=== PATIENT | male | born 1930 | race Caucasian/White ===

== ENCOUNTER 2018-03-03 17:18 | Inpatient (IN) | payer MEDICARE, BC ==
[~2018-03-03 17:18] MED LIST: Heparin 1,000 UNITS/ML VIAL ONE
[2018-03-03] MEDS: Sodium Chloride 0.9% 1,000 ML IV SCH (18:29)
[2018-03-03] MEDS ORDERED: Vancomycin HCl 1.5 GM in Sodium Chloride 0.9% 250 ML 300 ML IVPB SCH (18:30)
[2018-03-03 18:41] VITALS: BMI 25.7
[2018-03-03 18:43] LABS: INR-International Normal Ratio 1.9; PTT 44.4 SEC (22.9-36.1); Prothrombin Time 21.6 SEC (12.0-14.7)
[2018-03-03 18:49] LABS: Anion Gap 14 mmol/L (10-20); BUN (Urea Nitrogen) 20 mg/dL (8.4-25.7); Calc. Creatinine Clearance 77 mL/min (70-130); Carbon Dioxide 26 mmol/L (23-31); Chloride 100 mmol/L (98-107); Estimated GFR-MDRD 80; Glucose 113 mg/dL (83-110); Potassium 4.1 mmol/L (3.5-5.1); Sodium 136 mmol/L (136-145)
[2018-03-03 19:02] LABS: Anisocytosis SLIGHT = 6-15 cells (100X) (0-5/hpf); Band 7 % (5-11); Hemoglobin 11.4 g/dL (14.0-18.0); Lymphocytes 1 % (21-51); MDiff Complete? YES; Mean Corpuscular HGB CONC 32.7 g/dL (32.0-36.0); Mean Corpuscular Hemoglobin 29.6 pg (27.0-31.0); Mean Corpuscular Volume 90.5 fL (78.0-98.0); Mean Platelet Volume 6.8 fL (7.4-10.4); Monocytes 6 % (0-10); Neutrophil 86 % (42-75); PLT Morphology Comment Appears Adequate; Platelet Count 354 thou/uL (130-400); RBC Distribution Width 17.1 % (11.5-14.5); Red Blood Cell (RBC) Count 3.84 mill/uL (4.70-6.10); White Blood Cell (WBC) Count 13.1 thou/uL (4.8-10.8)
[2018-03-03 19:33] LABS: BF Color Yellow; Body Fluid Source SYNOVIAL FLUID; Clarity Cloudy/Turbid (Clear); RBC Count-Automated 216000 /cumm; Tube # EDTA; WBC Background Count 0.01; WBC/NonHematic-Auto 123000 /cumm
[2018-03-03 19:43] LABS: Bilirubin Negative (Negative); Blood, Urine Negative (Negative); Clarity CLEAR (Clear); Glucose, Urine (Dipstick) Negative (Negative); Leukocyte Trace (Negative); Nitrite Negative (Negative); Protein, Urine (Dipstick) Trace mg/dL (Neg-Trace); Specific Gravity, Urine 1.019 (1.002-1.036); pH, Urine 5.5 (5.0-9.0)
[2018-03-03 19:45] LABS: Bacteria/HPF None Seen HPF (None Seen); Hyaline Casts/LPF 0-3 HYALINE CAST LPF (0-3 Hyaline); Pathc Cast-AUWi Flag 0.58 (0-2.49); Squamous Epithelial None Seen HPF (0-3); WBC/HPF 0-3 HPF (0-3)
--- NOTE | 2018-03-03 19:50 | RAD ---
CHEST TWO VIEWS: 03/03/18 HISTORY: Preop. FINDINGS: Cardiac silhouette and pulmonary vasculature are unremarkable. Mediastinum is midline with aortic evans cification. Lungs are hyperinflated with flattening of each hemidiaphragm. No lobar consolidation, pn eumothorax or pleural fluid. 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 Ossification of the anterior longitudinal ligament of the thoracic spine is consistent with diffuse idiopathic skeletal hyperostosis. IMPRESSION: Atherosclerosis. COPD. Chronic right rotator cuff tear. POS: [facility]
[2018-03-03 19:59] LABS: BF Segmented Neutrophils 91 %; Lymphocytes 9 %
[2018-03-03] MEDS: Docusate Calcium (SURFAK) 240 MG CAP PO SCH (20:26)
[2018-03-03] MEDS: HYDROcodone/Acetaminophen 10/325 mg Tablet PO PRN (20:26)
[2018-03-03] MEDS: cefTRIAXone\\ROCEPHIN 2 GM in Sodium Chloride 0.9% 100 ML IVPB SCH (21:09)
[2018-03-04] MEDS: Fish Oil 1,000 MG CAP PO SCH ×2 (08:41→20:10)
[2018-03-04] MEDS: Docusate Calcium (SURFAK) 240 MG CAP PO SCH ×2 (08:41→20:10)
[2018-03-04] MEDS: Ascorbic Acid 500 mg Chewable Tablet PO SCH ×2 (08:42→20:07)
[2018-03-04] MEDS ORDERED: Tamsulosin HCl 0.4 MG CAP PO SCH (09:00)
[2018-03-04] MEDS ORDERED: Amlodipine 10 MG TAB PO SCH (09:00)
[2018-03-04] MEDS ORDERED: Colchicine 0.6 MG TAB PO SCH (09:00)
[2018-03-04] MEDS: HYDROcodone/Acetaminophen 10/325 mg Tablet PO PRN ×2 (11:26→20:08)
[2018-03-04] MEDS: Sodium Chloride 0.9% 1,000 ML IV SCH ×2 (15:22→17:10)
--- NOTE | 2018-03-04 15:23 | PDOC.PN ---
- Subjective Encounter Start Date: 03/04/18 Encounter Start Time: 15:21 Subjective: IM team consulted for medical management -: pt reports that he fell & has worse Knee pain in R knee - Objective MAR Reviewed: Yes Vital Signs & Weight: Vital Signs (12 hours) Temp Pulse Resp BP BP Pulse Ox 03/04/18 13:05 98.3 F 70 16 102/60 98 03/04/18 08:42 98.6 F 84 18 98 03/04/18 08:41 84 123/71 03/04/18 07:10 98.6 F 84 16 123/71 98 03/04/18 04:05 97.9 F 96 16 118/67 96 Weight Weight 200 lb I&O: 03/03/18 03/04/18 03/05/18 06:59 06:59 06:59 Intake Total 1040 Output Total 500 Balance 540 Result Diagrams: 03/03/18 18:17 03/03/18 18:17 Additional Labs: Laboratory Tests 03/04/18 07:32 C-Reactive Protein 24.63 H Phys Exam - Physical Examination Constitutional: NAD HEENT: PERRLA, moist MMs, sclera anicteric, oral pharynx no lesions Neck: no nodes, no JVD, supple, full ROM Respiratory: no wheezing, no rales, no rhonchi, clear to auscultation bilateral Cardiovascular: RRR, no significant murmur, no rub Gastrointestinal: soft, non-tender, no distention, positive bowel sounds Musculoskeletal: no edema, pulses present R knee sweling Neurological: non-focal, normal sensation, moves all 4 limbs Psychiatric: normal affect, A&O x 3 Skin: no rash Dx/Plan (1) Knee pain Code(s): M25.569 - PAIN IN UNSPECIFIED KNEE Status: Acute Qualifiers: Laterality: right Comment: Suspecting septic arthritis (2) A-fib Code(s): I48.91 - UNSPECIFIED ATRIAL FIBRILLATION Status: Chronic Qualifiers: Atrial fibrillation type: paroxysmal Qualified Code(s): I48.0 - Paroxysmal atrial fibrillation (3) HTN (hypertension) Code(s): I10 - ESSENTIAL (PRIMARY) HYPERTENSION Status: Chronic (4) Gout Code(s): M10.9 - GOUT, UNSPECIFIED Status: Chronic - Plan continue antibiotics, DVT proph w/SCDs Abx per ID. on Vanco and rocephin.Synovial fluid Cx sent.follow -: BP meds resterted -: hold eliquis for Sx tomorrow.restart as soon as possible -: add PRN meds. -: Im team will follow. Cont NS. am labs * . Review of Systems - Review of Systems Constitutional: negative: fever, chills, sweats, weakness, malaise, other ENT: negative: Ear Pain, Ear Discharge, Nose Pain, Nose Discharge, Nose Congestion, Mouth Pain, Mouth Swelling, Throat Pain, Throat Swelling, Other Respiratory: negative: Cough, Dry, Shortness of Breath, Hemoptysis, SOB with Excertion, Pleuritic Pain, Sputum, Wheezing Cardiovascular: negative: chest pain, palpitations, orthopnea, paroxysmal nocturnal dyspnea, edema, light headedness, other Gastrointestinal: negative: Nausea, Vomiting, Abdominal Pain, Diarrhea, Constipation, Melena, Hematochezia, Other Genitourinary: negative: Dysuria, Frequency, Incontinence, Hematuria, Retention , Other Musculoskeletal: Other (Knee pain). negative: Neck Pain, Shoulder Pain, Arm Pain, Back Pain, Hand Pain, Leg Pain, Foot Pain Skin: negative: Rash, Lesions, Jeremi, Bruising, Other Neurological: negative: Weakness, Numbness, Incoordination, Change in Speech, Confusion, Seizures, Other - Medications/Allergies Allergies/Adverse Reactions: Allergies Allergy/AdvReac Type Severity Reaction Status Date / Time No Known Allergies Allergy Verified 03/03/18 21:16 Medications: Current Medications Hydrocodone Bitart/Acetaminophen (Rossiter 10/325) 1 tab PO Q6H PRN PRN Reason: Mild-Moderate Pain (1-5) Last Admin: 03/03/18 20:26 Dose: 1 tab Hydrocodone Bitart/Acetaminophen (Rossiter 10/325) 2 tab PO Q6H PRN PRN Reason: Moderate to Severe Pain (6-10) Last Admin: 03/04/18 11:26 Dose: 2 tab Allopurinol (Zyloprim) 300 mg PO HS [facility] Amlodipine Besylate (Norvasc) 10 mg PO DAILY [facility] Ascorbic Acid (Vitamin C) 1,000 mg PO BID [facility] Last Admin: 03/04/18 08:42 Dose: 1,000 mg Atorvastatin Calcium (Lipitor) 40 mg PO HS [facility] Colchicine (Colcrys) 0.6 mg PO DAILY [facility] Docusate Calcium (Surfak) 240 mg PO BID [facility] Last Admin: 03/04/18 08:41 Dose: 240 mg Enalapril Maleate (Vasotec) 20 mg PO HS [facility] Fish Oil (Fish Oil) 1,000 mg PO BID [facility] Last Admin: 03/04/18 08:41 Dose: 1,000 mg Sodium Chloride (Normal Saline 0.9%) 1,000 mls @ 50 mls/hr IV .Q20H [facility] Last Admin: 03/03/18 18:29 Dose: 1,000 mls Ceftriaxone Sodium 2 gm/ (Sodium Chloride) 100 mls @ 200 mls/hr IVPB Q24HR@ 2000 [facility] Last Admin: 03/03/18 21:09 Dose: 100 mls Pantoprazole Sodium (Protonix) 40 mg PO DAILY [facility] Sodium Chloride (Flush - Normal Saline) 10 ml IVF Q12HR [facility] Sodium Chloride (Flush - Normal Saline) 10 ml IVF PRN PRN PRN Reason: Saline Flush Tamsulosin HCl (Flomax) 0.4 mg PO DAILY [facility]
[2018-03-04] MEDS ORDERED: Diabetic Tussin 200 MG/10 ML UDCUP PO PRN (15:42)
[2018-03-04] MEDS ORDERED: hydrALAZINE 20 MG/ML VIAL SLOW IVP PRN (15:42)
[2018-03-04] MEDS ORDERED: Benzonatate 100 MG CAP PO PRN (15:42)
[2018-03-04] MEDS ORDERED: Ondansetron HCl/PF 4 MG/2 ML Vial IVP PRN (15:42)
[2018-03-04] MEDS ORDERED: Acetaminophen 325 MG TAB PO PRN (15:42)
[2018-03-04] MEDS ORDERED: Bisacodyl 5 MG TAB PO PRN (15:42)
[2018-03-04] MEDS ORDERED: Nitroglycerin 0.4 MG TAB (25 Tab Bottle) SL PRN (15:42)
[2018-03-04] MEDS ORDERED: Mag-Al 1200 mg/1200 mg/30 ML UDCUP PO PRN (15:42)
[2018-03-04] MEDS ORDERED: Senokot 8.6 MG TAB PO PRN (15:42)
[2018-03-04] MEDS ORDERED: Loratadine 10 MG TAB PO PRN (15:42)
[2018-03-04] MEDS ORDERED: cloNIDine 0.1 MG TAB PO PRN (15:42)
[2018-03-04] MEDS ORDERED: Calcium Carbonate 500 MG ChewTAB PO PRN (15:42)
[2018-03-04] MEDS: Vancomycin HCl 1.25 GM in Sodium Chloride 0.9% 250 ML 250 ML IVPB SCH (18:36)
[2018-03-04] MEDS: Atorvastatin Calcium 40 MG TAB PO SCH (20:10)
[2018-03-04] MEDS: Allopurinol 300 MG TAB PO SCH (20:10)
[2018-03-04] MEDS: cefTRIAXone\\ROCEPHIN 2 GM in Sodium Chloride 0.9% 100 ML IVPB SCH (20:10)
[2018-03-04] MEDS ORDERED: Atorvastatin Calcium 40 MG TAB PO SCH (21:00)
[2018-03-04] MEDS ORDERED: Vancomycin HCl 1 GM in Sodium Chloride 0.9% 250 ML 250 ML IVPB SCH (21:00)
[2018-03-04] MEDS ORDERED: Non-Formulary Item 1 EACH (Omega-3s/Dha/Epa/Fish Oil [Omega-3 Fish Oil 1,200 Mg Sfgl] 1 E PO SCH (21:00)
[2018-03-04] MEDS ORDERED: Non-Formulary Item 1 EACH (Enalapril Maleate [Enalapril Maleate] 20 MG) PO SCH (21:00)
[2018-03-04] MEDS ORDERED: Allopurinol 300 MG TAB PO SCH (21:00)
--- NOTE | 2018-03-04 23:49 | CON ---
DATE OF CONSULTATION: 03/04/2018 REASON FOR CONSULTATION: Right total knee replacement infection. HISTORY OF PRESENT ILLNESS: An 87-year-old who has a history of chronic atrial fibrillation, hypertension as well as gout, and previous right knee replacement many years ago by Dr. Chavez. Reportedly, more than 20 years ago, he developed progressive pain in the area and Dr. Chavez did arthrocentesis. This yielded seropurulent fluid with gram positive cocci in clusters. Full identification and susceptibilities are pending. The patient is going to have removal of the implant tomorrow and we will have a spacer, probably functional spacer temporarily placed. He right now denies any headaches, visual symptoms, sore throat, odynophagia, excisional dyspnea or chest pain, no back pain, no abdominal pain or diarrhea. He is voiding in the urinal. His neuro status is stable. PAST MEDICAL HISTORY: Includes hypertension, gout, atrial fibrillation. MEDICATIONS: Allopurinol, hydrocodone, Norvasc, ascorbic acid, colchicine, enalapril, ceftriaxone, tamsulosin and currently in addition, he is on tramadol. ALLERGIES: None. SOCIAL HISTORY: Never a smoker. FAMILY HISTORY: Noncontributory. PHYSICAL EXAMINATION: VITAL SIGNS: Temperature max 98.6, BP 95/56, pulse 72, respirations 20, O2 sat 98%. SKIN: Shows the right knee with no evidence of erythema or drainage. Peripheral IV access. Does not have a Flores catheter. HEENT: Noncontributory. NECK: Supple. LUNGS: With symmetric clear breath sounds. HEART: S1, S2, irregular rate without murmurs. ABDOMEN: Soft, not distended. GENITOURINARY: No genital abnormalities. EXTREMITIES: Right knee is somewhat swollen compared with the left side, some limitation range of motion. Pulses 1+ in dorsalis pedis. NEUROLOGIC: Plantar responses are flexure. Cognitive function appears to be intact. LABORATORY DATA: White cell count 13.1, hemoglobin 11.4, platelets 354,000 with 86% neutrophils. INR 1.9. Chemistry with a creatinine 0.9. Synovial fluid with predominance of mature neutrophils. Urinalysis with 0-3 wbc's. The culture aspirate with gram positive cocci in clusters. IMAGING: Chest x-ray, atherosclerosis and COPD. ASSESSMENT: Prior total knee replacement with now apparent infection, probably either coagulase-negative Staphylococcus or Staphylococcus aureus including the possibility of methicillin-resistant staphylococcus aureus. The patient will have the implant removed tomorrow and then after that a spacer will be placed. The decision to revise or keep the spacer which is likely to be one of those functional spacers for a long period of time. We will wait for the final identification and susceptibility profile to determine the long-term antimicrobial therapy. We will add vancomycin. Wait for cultures and then PICC line placement. Treat for a long time about 42 days. After that transition to oral antimicrobials, duration to be determined by the subsequent course of management, specifically if there is a revision surgery or not. There is not, then would continue it indefinitely with suppressive therapy. MTDD
[2018-03-05 05:40] LABS: #Basophils 0.1 thou/uL (0.0-0.2); #Eosinphils 0.2 thou/uL (0.0-0.7); #Lymphocytes 1.5 thou/uL (1.20-3.40); #Monocytes 1.1 thou/uL (0.11-0.59); #Neutrophils 6.4 thou/uL (1.40-6.50); %Basophils 0.6 % (0.0-1.0); %Eosinophils 1.8 % (0.0-10.0); %Lymphocytes 16.5 % (21.0-51.0); %Monocytes 12.1 % (0.0-10.0); %Neutrophils 68.9 % (42.0-75.0); Hemoglobin 9.4 g/dL (14.0-18.0); Mean Corpuscular HGB CONC 32.2 g/dL (32.0-36.0); Mean Corpuscular Hemoglobin 29.5 pg (27.0-31.0); Mean Corpuscular Volume 91.5 fL (78.0-98.0); Mean Platelet Volume 7.5 fL (7.4-10.4); Platelet Count 302 thou/uL (130-400); RBC Distribution Width 17.1 % (11.5-14.5); White Blood Cell (WBC) Count 9.3 thou/uL (4.8-10.8)
[2018-03-05 05:43] LABS: Anion Gap 9 mmol/L (10-20); BUN (Urea Nitrogen) 19 mg/dL (8.4-25.7); Calc. Creatinine Clearance 87 mL/min (70-130); Calcium 8.3 mg/dL (7.8-10.44); Carbon Dioxide 25 mmol/L (23-31); Chloride 103 mmol/L (98-107); Estimated GFR-MDRD Greater than 90; Glucose 96 mg/dL (83-110); Potassium 3.7 mmol/L (3.5-5.1); Sodium 133 mmol/L (136-145)
[2018-03-05] MEDS: Vancomycin HCl 1.25 GM in Sodium Chloride 0.9% 250 ML 250 ML IVPB SCH ×2 (05:58→17:40)
[2018-03-05] MEDS ORDERED: Fentanyl 100 MCG/2 ML VIAL ONE ×3 (07:28→10:43)
[2018-03-05] MEDS ORDERED: Ropivacaine 0.2% HCl/PF 20 ML ONE (07:28)
[2018-03-05] MEDS ORDERED: Midazolam HCl 2 mg/2 ml Vial ONE (07:28)
[2018-03-05] MEDS ORDERED: Tobramycin Sulfate 1.2 GM VIAL ONE (07:57)
[2018-03-05] MEDS ORDERED: Bupivacaine HCl 0.5%/Epinephrine 1:200,000/PF 30 ml Vial ONE ×2 (07:57→10:59)
[2018-03-05] MEDS: Amlodipine 10 MG TAB PO SCH (08:26)
[2018-03-05] MEDS: Docusate Calcium (SURFAK) 240 MG CAP PO SCH ×2 (08:27→20:34)
[2018-03-05] MEDS: Colchicine 0.6 MG TAB PO SCH (08:27)
[2018-03-05] MEDS: Fish Oil 1,000 MG CAP PO SCH ×2 (08:27→20:34)
[2018-03-05] MEDS: Ascorbic Acid 500 mg Chewable Tablet PO SCH ×2 (08:27→20:34)
[2018-03-05] MEDS: Tamsulosin HCl 0.4 MG CAP PO SCH (08:27)
[2018-03-05] MEDS ORDERED: Non-Formulary Item 1 EACH (Omeprazole [Omeprazole] 20 MG) PO SCH (09:00)
[2018-03-05] MEDS ORDERED: COLCHICINE 0.6 MG PO SCH (09:00)
[2018-03-05] MEDS ORDERED: Ondansetron HCl/PF 4 MG/2 ML Vial IVP PRN (10:26)
[2018-03-05] MEDS ORDERED: Promethazine HCl 25 MG/ML VIAL SLOW IVP PRN (10:26)
[2018-03-05] MEDS ORDERED: Promethazine HCl 25 MG/ML VIAL IM PRN (10:26)
--- NOTE | 2018-03-05 11:05 | OP ---
DATE OF PROCEDURE: 03/05/2018 PREOPERATIVE DIAGNOSIS: Infected total knee. POSTOPERATIVE DIAGNOSIS: Infected total knee. PROCEDURE: Revision of right knee for infection. SURGEON: Sandip Chavez M.D. CREDIT UNDERWRITER: Howie Hooper PA-C. BLOOD LOSS: Minimal. TOURNIQUET TIME: 63. SPECIMEN: None. DRAINS: None. COMPLICATIONS: None. DESCRIPTION OF PROCEDURE: The patient was taken to operating room where general anesthesia was induc ed. Right leg was prepped and draped in the usual sterile fashion. He was already on Rocephin and v ancomycin. The old incision was opened. I created flaps. I performed medial parapatellar arthrotom y. I performed a complete synovectomy and then removed implants with some difficulty and great care to preserve bone stock. Pulsatile lavage irrigation was performed. I recut the tibia and trial 16 a ll poly tibia with pretty good stability and full extension. I removed the patella and irrigat ed this as well. I created tobramycin and vancomycin treated cement. This was mixed and I had cemen alia the implants with somewhat sloppy technique to make them easier to remove enough cement and then about 10 degrees of flexion. Extraneous cement was removed. Pulsatile lavage irrigation was perform ed again. A total of about 8 liters of irrigation was used. Remnants include #2 Vicryl and #2 Quill , subcu closed with 0 Quill, skin was closed with 2-0 Prolene. Sterile dressings applied. The patie nt placed in knee immobilizer.
[2018-03-05] MEDS ORDERED: Ondansetron HCl/PF 4 MG/2 ML Vial ONE (11:30)
[2018-03-05] MEDS ORDERED: Lidocaine 1% PF 5 ML VIAL ONE (11:30)
[2018-03-05] MEDS ORDERED: PHENYLEPHRINE-NS 100 MCG/ML 10 ML SYRINGE ONE (11:30)
[2018-03-05] MEDS ORDERED: PROPOFOL 200 MG/20 ML VIAL ONE (11:30)
--- NOTE | 2018-03-05 12:18 | EKG ---
Test Reason : PREOP Blood Pressure : / mmHG Vent. Rate : 083 BPM Atrial Rate : 098 BPM P-R Int : 000 ms QRS Dur : 084 ms QT Int : 340 ms P-R-T Axes : 000 081 033 degrees QTc Int : 399 ms Atrial fibrillation RSR' or QR pattern in V1 suggests right ventricular conduction delay Abnormal ECG Confirmed by KIRAN ZUNIGA ([id number]) on 03/05/2018 12:18:30 PM Referred By: CHIRAG Confirmed By:KIRAN ZUNIGA
[2018-03-05] MEDS: HYDROcodone/Acetaminophen 10/325 mg Tablet PO PRN ×2 (13:37→19:30)
--- NOTE | 2018-03-05 14:26 | PRG ---
DATE OF SERVICE: 03/05/2018 SUBJECTIVE: Mr. Lozano is still having pain in the right knee area, did not have a PICC line placed yet. No respiratory symptoms, no abdominal pain. Voiding in the urinal. OBJECTIVE: VITAL SIGNS: T-max 98.2, blood pressure 136/81, pulse 90, respirations 18. GENERAL: Appears in no distress. LUNGS: Clear. CARDIOVASCULAR: S1 and S2, regular rate. ABDOMEN: Soft. LABORATORY DATA: White cell count down to 9.3, hemoglobin 9.4, platelets 302. Creatinine 0.8. Micr obiology with alpha-hemolytic streptococcus. The operative note was reviewed. The old incision was opened. Arthrotomy completed. Synovectomy completed. Implants removed. Patellar removed and irrig ated. Cement impregnated with antimicrobials was placed and new spacers with implants cemented. ASSESSMENT AND DISCUSSION: Total knee replacement many years ago, now with alpha-hemolytic strep inf ection. Continue Rocephin until final culture results are available, then discharge planning on IV R ocephin for 6 weeks and then transition to oral Keflex for indefinite suppression. I would treat for 3 months with 500 three times a day and then after that twice daily Keflex suppressive therapy. Fol low up C-reactive protein. The patient may be eligible for a revision if the current implant/spacer is not associated with adequate functional capacity.
--- NOTE | 2018-03-05 15:55 | PDOC.PN ---
- Subjective Encounter Start Date: 03/05/18 Encounter Start Time: 15:53 Subjective: s/p Knee Sx for Septic arthritis w placement of cement w ABx -: denies any pain/fever/chills/SOB -: care discussed w family at bedside - Objective MAR Reviewed: Yes Vital Signs & Weight: Vital Signs (12 hours) Temp Pulse Resp BP Pulse Ox 03/05/18 11:30 97.4 F L 90 18 136/81 95 03/05/18 08:26 79 03/05/18 04:11 97.5 F L 79 18 110/62 96 Weight Weight 200 lb I&O: 03/04/18 03/05/18 03/06/18 06:59 06:59 06:59 Intake Total 1040 Output Total 500 Balance 540 Result Diagrams: 03/05/18 04:02 03/05/18 04:02 Additional Labs: Microbiology 03/03/18 18:00 Knee aspirate - Right Bacterial Culture - Preliminary Alpha-Hemolytic Streptococcus 03/03/18 18:00 Knee aspirate - Right Bacterial Culture - Preliminary Phys Exam - Physical Examination Constitutional: NAD HEENT: PERRLA, moist MMs, sclera anicteric, oral pharynx no lesions Neck: no nodes, no JVD, supple, full ROM Respiratory: no wheezing, no rales, no rhonchi, clear to auscultation bilateral Cardiovascular: RRR, no significant murmur, no rub, gallop, irregular Gastrointestinal: soft, non-tender, no distention, positive bowel sounds Musculoskeletal: no edema, pulses present Neurological: non-focal, normal sensation, moves all 4 limbs Psychiatric: normal affect, A&O x 3 Skin: no rash Dx/Plan (1) Knee pain Code(s): M25.569 - PAIN IN UNSPECIFIED KNEE Status: Acute Qualifiers: Laterality: right Comment: Suspecting septic arthritis.s/p Sx w Removal of hardware 03/05/18 (2) A-fib Code(s): I48.91 - UNSPECIFIED ATRIAL FIBRILLATION Status: Chronic Qualifiers: Atrial fibrillation type: paroxysmal Qualified Code(s): I48.0 - Paroxysmal atrial fibrillation (3) HTN (hypertension) Code(s): I10 - ESSENTIAL (PRIMARY) HYPERTENSION Status: Chronic (4) Gout Code(s): M10.9 - GOUT, UNSPECIFIED Status: Chronic - Plan plan discussed w/ family, continue antibiotics, PT/OT, out of bed/ambulate, DVT proph w/SCDs Cont ABx. follow Cx. Streptococcus. -: pICC line placed for protracted course of IV ABx -: rehab next week. -: Check H/h in am. Home meds as below -: AC on hold. restart as soon as possible whe cleared by Ortho * . Review of Systems - Review of Systems Constitutional: negative: fever, chills, sweats, weakness, malaise, other Respiratory: negative: Cough, Dry, Shortness of Breath, Hemoptysis, SOB with Excertion, Pleuritic Pain, Sputum, Wheezing Cardiovascular: negative: chest pain, palpitations, orthopnea, paroxysmal nocturnal dyspnea, edema, light headedness, other Gastrointestinal: negative: Nausea, Vomiting, Abdominal Pain, Diarrhea, Constipation, Melena, Hematochezia, Other Genitourinary: negative: Dysuria, Frequency, Incontinence, Hematuria, Retention , Other Musculoskeletal: negative: Neck Pain, Shoulder Pain, Arm Pain, Back Pain, Hand Pain, Leg Pain, Foot Pain, Other Skin: negative: Rash, Lesions, Jeremi, Bruising, Other Neurological: negative: Weakness, Numbness, Incoordination, Change in Speech, Confusion, Seizures, Other - Medications/Allergies Allergies/Adverse Reactions: Allergies Allergy/AdvReac Type Severity Reaction Status Date / Time No Known Allergies Allergy Verified 03/03/18 21:16 Medications: Current Medications Acetaminophen (Tylenol) 650 mg PO Q4H PRN PRN Reason: Headache/Fever or Mild Pain Hydrocodone Bitart/Acetaminophen (Comfort 10/325) 1 tab PO Q6H PRN PRN Reason: Mild-Moderate Pain (1-5) Last Admin: 03/03/18 20:26 Dose: 1 tab Hydrocodone Bitart/Acetaminophen (Comfort 10/325) 2 tab PO Q6H PRN PRN Reason: Moderate to Severe Pain (6-10) Last Admin: 03/05/18 13:37 Dose: 2 tab Al Hydroxide/Mg Hydroxide (Maalox) 15 ml PO Q4H PRN PRN Reason: Heartburn or Indigestion Allopurinol (Zyloprim) 300 mg PO HS [facility] Last Admin: 03/04/18 20:10 Dose: 300 mg Amlodipine Besylate (Norvasc) 10 mg PO DAILY [facility] Last Admin: 03/05/18 08:26 Dose: Not Given Ascorbic Acid (Vitamin C) 1,000 mg PO BID [facility] Last Admin: 03/05/18 08:27 Dose: Not Given Atorvastatin Calcium (Lipitor) 40 mg PO [facility] Last Admin: 03/04/18 20:10 Dose: 40 mg Benzonatate (Tessalon) 100 mg PO Q4H PRN PRN Reason: Cough Bisacodyl (Dulcolax) 10 mg PO DAILYPRN PRN PRN Reason: Constipation Calcium Carbonate (Tums) 1,000 mg PO Q4H PRN PRN Reason: Heartburn or Indigestion Clonidine (Catapres) 0.1 mg PO Q4H PRN PRN Reason: Systolic BP > 160 Colchicine (Colcrys) 0.6 mg PO DAILY [facility] Last Admin: 03/05/18 08:27 Dose: Not Given Docusate Calcium (Surfak) 240 mg PO BID [facility] Last Admin: 03/05/18 08:27 Dose: Not Given Enalapril Maleate (Vasotec) 20 mg PO [facility] Last Admin: 03/04/18 20:09 Dose: 20 mg Fish Oil (Fish Oil) 1,000 mg PO BID [facility] Last Admin: 03/05/18 08:27 Dose: Not Given Guaifenesin (Robitussin Sf) 200 mg PO Q4H PRN PRN Reason: Cough Hydralazine HCl (Apresoline) 10 mg SLOW IVP Q4H PRN PRN Reason: Systolic BP > 170 Sodium Chloride (Normal Saline 0.9%) 1,000 mls @ 50 mls/hr IV .Q20H [facility] Last Admin: 03/04/18 17:10 Dose: 1,000 mls Ceftriaxone Sodium 2 gm/ (Sodium Chloride) 100 mls @ 200 mls/hr IVPB Q24HR@ 2000 [facility] Last Admin: 03/04/18 20:10 Dose: 100 mls Vancomycin HCl 1.25 gm/ Sodium (Chloride) 250 mls @ 166.667 mls/hr IVPB 0600, 1800 [facility] Last Admin: 03/05/18 05:58 Dose: 250 mls Lactulose (Lactulose) 10 gm PO DAILYPRN PRN PRN Reason: Constipation Loratadine (Claritin) 10 mg PO DAILYPRN PRN PRN Reason: Sinus Symptoms Miscellaneous Medication (Pharmacy To Dose) 1 each IVPB PRN PRN PRN Reason: Pharmacy to dose Nitroglycerin (Nitrostat) 0.4 mg SL Q5MIN PRN PRN Reason: Chest Pain Ondansetron HCl (Zofran) 4 mg IVP Q6H PRN PRN Reason: Nausea/Vomiting Pantoprazole Sodium (Protonix) 40 mg PO DAILY [facility] Last Admin: 03/05/18 08:27 Dose: Not Given Senna (Senokot) 2 tab PO HSPRN PRN PRN Reason: Constipation Sodium Chloride (Flush - Normal Saline) 10 ml IVF Q12HR [facility] Last Admin: 03/05/18 08:27 Dose: Not Given Sodium Chloride (Flush - Normal Saline) 10 ml IVF PRN PRN PRN Reason: Saline Flush Tamsulosin HCl (Flomax) 0.4 mg PO DAILY [facility] Last Admin: 03/05/18 08:27 Dose: Not Given Tramadol HCl (Ultram) 50 mg PO Q4H PRN PRN Reason: Moderate Pain (4-6)
--- NOTE | 2018-03-05 16:29 | SPC ---
ULTRASOUND GUIDED LEFT UPPER EXTREMITY PICC LINE PLACEMENT: Date: 03/05/18 HISTORY: Right knee infection. Patient needs long-term IV antibiotics. FLUOROSCOPY: Total fluoroscopy time was 0.1 minutes with total dose of 416 mGy*cm^2. TECHNIQUE: After informed consent was obtained, the patient was placed on the angiography table in the supine po sition. The left upper extremity was meticulously prepped and draped in the usual sterile fashion. An appropriate access site was determined with ultrasound guidance. The skin and subcutaneous tissues w ere infiltrated with buffered 1% lidocaine for local anesthesia. A small skin incision was made. A 5 [place] peel-away sheath was placed. The catheter was measured and cut to the appropriate length. The catheter was placed over the guidewi re with the tip positioned overlying the distal SVC. The guidewire and peel-away sheath were removed. The catheter was accessed and aspirated/flushed easily. The catheter was secured to the skin utilizi ng a StatLock device, and a dry, sterile dressing was placed. The patient tolerated the procedure well and without immediate complication. FINDINGS: Technically successful placement of a single lumen 5 [place] 47 cm PICC line via the left basilic vein . The tip of the catheter overlies the distal SVC. IMPRESSION: Technically successful left upper extremity PICC line placement. POS: [facility]
[2018-03-05] MEDS: cefTRIAXone\\ROCEPHIN 2 GM in Sodium Chloride 0.9% 100 ML IVPB SCH (19:30)
[2018-03-05] MEDS: Allopurinol 300 MG TAB PO SCH (20:34)
[2018-03-05] MEDS: Atorvastatin Calcium 40 MG TAB PO SCH (20:34)
[2018-03-05] MEDS: Heparin 5,000 UNITS/ML VIAL SC SCH (20:34)
[2018-03-06] MEDS: Sodium Chloride 0.9% 1,000 ML IV SCH ×2 (00:46→06:48)
[2018-03-06 05:51] LABS: #Eosinphils 0.1 thou/uL (0.0-0.7); #Monocytes 1.2 thou/uL (0.11-0.59); #Neutrophils 8.7 thou/uL (1.40-6.50); %Basophils 0.2 % (0.0-1.0); %Eosinophils 0.7 % (0.0-10.0); %Lymphocytes 9.1 % (21.0-51.0); %Monocytes 10.8 % (0.0-10.0); %Neutrophils 79.2 % (42.0-75.0); Hemoglobin 9.6 g/dL (14.0-18.0); Mean Corpuscular HGB CONC 32.7 g/dL (32.0-36.0); Mean Corpuscular Volume 91.8 fL (78.0-98.0); Mean Platelet Volume 6.8 fL (7.4-10.4); Platelet Count 319 thou/uL (130-400); RBC Distribution Width 17.1 % (11.5-14.5); Red Blood Cell (RBC) Count 3.18 mill/uL (4.70-6.10)
[2018-03-06 06:03] LABS: Vancomycin, Trough 20.5 ug/mL
[2018-03-06] MEDS: Vancomycin HCl 1.25 GM in Sodium Chloride 0.9% 250 ML 250 ML IVPB SCH (06:03)
[2018-03-06 06:06] LABS: Anion Gap 10 mmol/L (10-20); BUN (Urea Nitrogen) 16 mg/dL (8.4-25.7); Calc. Creatinine Clearance 91 mL/min (70-130); Carbon Dioxide 23 mmol/L (23-31); Chloride 104 mmol/L (98-107); Estimated GFR-MDRD Greater than 90; Glucose 128 mg/dL (83-110); Potassium 4.3 mmol/L (3.5-5.1); Sodium 133 mmol/L (136-145)
[2018-03-06] MEDS: Ascorbic Acid 500 mg Chewable Tablet PO SCH ×2 (07:48→20:41)
[2018-03-06] MEDS: Heparin 5,000 UNITS/ML VIAL SC SCH ×2 (07:48→20:43)
[2018-03-06] MEDS: Tamsulosin HCl 0.4 MG CAP PO SCH (07:49)
[2018-03-06] MEDS: Amlodipine 10 MG TAB PO SCH (07:49)
[2018-03-06] MEDS: Docusate Calcium (SURFAK) 240 MG CAP PO SCH ×2 (07:49→20:42)
[2018-03-06] MEDS: Colchicine 0.6 MG TAB PO SCH (07:50)
[2018-03-06] MEDS: Fish Oil 1,000 MG CAP PO SCH ×2 (07:50→20:43)
[2018-03-06] MEDS: HYDROcodone/Acetaminophen 10/325 mg Tablet PO PRN ×2 (08:43→16:04)
[2018-03-06] MEDS: traMADol HCl 50 MG TAB PO PRN (13:15)
--- NOTE | 2018-03-06 17:26 | PDOC.PN ---
- Subjective Encounter Start Date: 03/06/18 (f/u htn) Encounter Start Time: 17:23 Subjective: Pt denies any complaints or concerns. No BM in 3 days. Denies any -: problems with urination. - Objective Vital Signs & Weight: Vital Signs (12 hours) Temp Pulse Resp BP BP Pulse Ox 03/06/18 15:15 97.8 F 86 14 105/62 92 L 03/06/18 12:05 97.8 F 86 16 106/59 L 92 L 03/06/18 08:00 97.8 F 86 14 92 L 03/06/18 07:49 86 128/63 03/06/18 07:28 97.8 F 86 14 128/83 92 L Weight Weight 200 lb I&O: 03/05/18 03/06/18 03/07/18 06:59 06:59 06:59 Intake Total 780 Output Total 425 Balance 355 Result Diagrams: 03/06/18 05:28 03/06/18 05:28 Phys Exam - Physical Examination Constitutional: NAD Respiratory: no wheezing, no rales, no rhonchi Cardiovascular: RRR, no significant murmur Gastrointestinal: soft, non-tender, no distention, positive bowel sounds right leg in brace Neurological: non-focal Psychiatric: normal affect Skin: no rash Dx/Plan (1) Knee pain Code(s): M25.569 - PAIN IN UNSPECIFIED KNEE Status: Acute Qualifiers: Laterality: right Comment: Suspecting septic arthritis.s/p Sx w Removal of hardware 03/05/18 (2) A-fib Code(s): I48.91 - UNSPECIFIED ATRIAL FIBRILLATION Status: Chronic Qualifiers: Atrial fibrillation type: paroxysmal Qualified Code(s): I48.0 - Paroxysmal atrial fibrillation (3) Gout Code(s): M10.9 - GOUT, UNSPECIFIED Status: Chronic (4) HTN (hypertension) Code(s): I10 - ESSENTIAL (PRIMARY) HYPERTENSION Status: Chronic (5) Hyponatremia Code(s): E87.1 - HYPO-OSMOLALITY AND HYPONATREMIA Status: Acute - Plan * Right knee/leg per Ortho * * BP's on lower side especially for age - will reduce to half both the enalapril and amlodipine and place hold parameters if sbp less than 130. Im concerned this lower bp is going to cause poor energy or orthostatic sx. Return to home dosing as bp's rise * * Hyponatremia - mild, monitor * * Pt has docusate scheduled, add miralax. Has a few prn meds as well * * resume full anticoagulation for a fib when cleared by ortho * * dvt prophy - heparin * gi prophy - not indicated * code status full
[2018-03-06] MEDS: cefTRIAXone\\ROCEPHIN 2 GM in Sodium Chloride 0.9% 100 ML IVPB SCH (20:39)
[2018-03-06] MEDS: Allopurinol 300 MG TAB PO SCH (20:41)
[2018-03-06] MEDS: Atorvastatin Calcium 40 MG TAB PO SCH (20:42)
[2018-03-06] MEDS: Polyethylene Glycol 3350 17 GM Packet PO SCH (20:44)
--- NOTE | 2018-03-06 20:55 | PDOC.EVN ---
Event Note - Event Note Event Note: reviewing notes and VS and pt's systolic pressure in the 90's. Will start IVF to run overnight. Hold parameters placed earlier on anti-htn meds.
[2018-03-06] MEDS ORDERED: Sodium Chloride 0.9% 1,000 ML IV SCH (21:30)
[2018-03-07] MEDS: HYDROcodone/Acetaminophen 10/325 mg Tablet PO PRN ×3 (00:25→18:26)
[2018-03-07 06:20] LABS: Anion Gap 8 mmol/L (10-20); BUN (Urea Nitrogen) 23 mg/dL (8.4-25.7); Calc. Creatinine Clearance 54 mL/min (70-130); Carbon Dioxide 25 mmol/L (23-31); Chloride 104 mmol/L (98-107); Estimated GFR-MDRD 53; Glucose 121 mg/dL (83-110); Potassium 4.1 mmol/L (3.5-5.1); Sodium 133 mmol/L (136-145)
[2018-03-07] MEDS: Heparin 5,000 UNITS/ML VIAL SC SCH ×2 (08:42→20:07)
[2018-03-07] MEDS: Docusate Calcium (SURFAK) 240 MG CAP PO SCH ×2 (08:42→20:06)
[2018-03-07] MEDS: Ascorbic Acid 500 mg Chewable Tablet PO SCH ×2 (08:42→20:06)
[2018-03-07] MEDS: Fish Oil 1,000 MG CAP PO SCH ×2 (08:42→20:07)
[2018-03-07] MEDS: Tamsulosin HCl 0.4 MG CAP PO SCH (08:42)
[2018-03-07] MEDS: Colchicine 0.6 MG TAB PO SCH (08:42)
[2018-03-07] MEDS ORDERED: Amlodipine 5 MG TAB PO SCH (09:00)
--- NOTE | 2018-03-07 09:09 | PDOC.PN ---
- Subjective Encounter Start Date: 03/07/18 (f/u hypertension) Encounter Start Time: 09:07 Subjective: Pt denies any complaints this AM - denies cp/sob/n/v/diarrhea/skin rash -: Overnight bp's into the 90's systolic - IVF started - Objective Vital Signs & Weight: Vital Signs (12 hours) Temp Pulse Resp BP Pulse Ox 03/07/18 07:47 97.8 F 89 14 112/62 100 03/07/18 04:17 98.5 F 97 21 H 137/65 99 03/07/18 00:12 97.7 F 79 17 136/63 100 Weight Weight 200 lb I&O: 03/06/18 03/07/18 03/08/18 06:59 06:59 06:59 Intake Total 780 1335 Output Total 425 375 Balance 355 960 Result Diagrams: 03/06/18 05:28 03/07/18 05:15 Phys Exam - Physical Examination Constitutional: NAD Respiratory: no wheezing, no rales, no rhonchi, clear to auscultation bilateral Cardiovascular: RRR, no significant murmur Gastrointestinal: soft, non-tender, no distention, positive bowel sounds Psychiatric: normal affect Skin: no rash Dx/Plan (1) Knee pain Code(s): M25.569 - PAIN IN UNSPECIFIED KNEE Status: Acute Qualifiers: Laterality: right Comment: Suspecting septic arthritis.s/p Sx w Removal of hardware 03/05/18 (2) A-fib Code(s): I48.91 - UNSPECIFIED ATRIAL FIBRILLATION Status: Chronic Qualifiers: Atrial fibrillation type: paroxysmal Qualified Code(s): I48.0 - Paroxysmal atrial fibrillation (3) Gout Code(s): M10.9 - GOUT, UNSPECIFIED Status: Chronic (4) HTN (hypertension) Code(s): I10 - ESSENTIAL (PRIMARY) HYPERTENSION Status: Chronic (5) Hyponatremia Code(s): E87.1 - HYPO-OSMOLALITY AND HYPONATREMIA Status: Acute - Plan * * Right knee/leg per Ortho * * BP's low overnight and normal this AM - norvasc d/c. Will also d/c enalapril - add both back as bp's increase. * * Hyponatremia - mild, stable, will continue to monitor * * Pt has docusate scheduled and miralax scheduled and prn meds - no BM since admission * * resume full anticoagulation for a fib when cleared by ortho * * dvt prophy - heparin * gi prophy - not indicated * code status full .
[2018-03-07] MEDS: cefTRIAXone\\ROCEPHIN 2 GM in Sodium Chloride 0.9% 100 ML IVPB SCH (20:02)
[2018-03-07] MEDS: Polyethylene Glycol 3350 17 GM Packet PO SCH (20:04)
[2018-03-07] MEDS: Allopurinol 300 MG TAB PO SCH (20:06)
[2018-03-07] MEDS: Atorvastatin Calcium 40 MG TAB PO SCH (20:06)
[2018-03-07] MEDS: traMADol HCl 50 MG TAB PO PRN (22:19)
[2018-03-08 05:31] LABS: #Eosinphils 0.6 thou/uL (0.0-0.7); #Lymphocytes 1.3 thou/uL (1.20-3.40); #Monocytes 0.7 thou/uL (0.11-0.59); #Neutrophils 5.5 thou/uL (1.40-6.50); %Basophils 0.5 % (0.0-1.0); %Eosinophils 7.3 % (0.0-10.0); %Lymphocytes 15.6 % (21.0-51.0); %Monocytes 8.8 % (0.0-10.0); %Neutrophils 67.7 % (42.0-75.0); Hemoglobin 7.5 g/dL (14.0-18.0); Mean Corpuscular Hemoglobin 30.6 pg (27.0-31.0); Mean Corpuscular Volume 92.8 fL (78.0-98.0); Mean Platelet Volume 7.1 fL (7.4-10.4); Platelet Count 348 thou/uL (130-400); Red Blood Cell (RBC) Count 2.44 mill/uL (4.70-6.10); White Blood Cell (WBC) Count 8.2 thou/uL (4.8-10.8)
[2018-03-08 05:36] LABS: Anion Gap 9 mmol/L (10-20); BUN (Urea Nitrogen) 26 mg/dL (8.4-25.7); Calc. Creatinine Clearance 49 mL/min (70-130); Calcium 8.2 mg/dL (7.8-10.44); Carbon Dioxide 25 mmol/L (23-31); Chloride 105 mmol/L (98-107); Estimated GFR-MDRD 47; Glucose 92 mg/dL (83-110); Potassium 4.2 mmol/L (3.5-5.1); Sodium 135 mmol/L (136-145)
[2018-03-08] MEDS: Colchicine 0.6 MG TAB PO SCH (09:04)
[2018-03-08] MEDS: Fish Oil 1,000 MG CAP PO SCH ×2 (09:04→20:29)
[2018-03-08] MEDS: Docusate Calcium (SURFAK) 240 MG CAP PO SCH ×2 (09:05→20:32)
[2018-03-08] MEDS: Tamsulosin HCl 0.4 MG CAP PO SCH (09:05)
[2018-03-08] MEDS: Ascorbic Acid 500 mg Chewable Tablet PO SCH ×2 (09:06→20:30)
[2018-03-08] MEDS: Heparin 5,000 UNITS/ML VIAL SC SCH ×2 (09:08→20:39)
[2018-03-08] MEDS: HYDROcodone/Acetaminophen 10/325 mg Tablet PO PRN ×2 (09:14→23:23)
--- NOTE | 2018-03-08 13:41 | PDOC.PN ---
- Subjective Encounter Start Date: 03/08/18 Encounter Start Time: 13:39 Subjective: no fever, some pain in surgical site - Objective MAR Reviewed: Yes Vital Signs & Weight: Vital Signs (12 hours) Temp Pulse Resp BP Pulse Ox 03/08/18 11:42 98.2 F 99 20 131/71 97 03/08/18 08:08 98.0 F 100 16 129/75 98 03/08/18 08:00 98.0 F 100 16 03/08/18 04:18 98.1 F 86 17 126/70 97 Weight Weight 200 lb I&O: 03/07/18 03/08/18 03/09/18 06:59 06:59 06:59 Intake Total 1335 680 Output Total 375 350 Balance 960 330 Result Diagrams: 03/08/18 05:02 03/08/18 05:02 Phys Exam - Physical Examination Neck: no JVD Respiratory: clear to auscultation bilateral Cardiovascular: no significant murmur, irregular Gastrointestinal: soft, non-tender, positive bowel sounds Musculoskeletal: no edema Dx/Plan (1) Atrial fibrillation with controlled ventricular response Code(s): I48.91 - UNSPECIFIED ATRIAL FIBRILLATION Status: Chronic (2) Hyponatremia Code(s): E87.1 - HYPO-OSMOLALITY AND HYPONATREMIA Status: Acute (3) HTN (hypertension) Code(s): I10 - ESSENTIAL (PRIMARY) HYPERTENSION Status: Chronic Qualifiers: Hypertension type: essential hypertension Qualified Code(s): I10 - Essential (primary) hypertension (4) Acute renal failure Status: Acute - Plan prerenal azotemia. cont iv fluids, add NS bolus, lab in am * .
[2018-03-08] MEDS ORDERED: Sodium Chloride 0.9% 500 ML IV SCH (13:45)
[2018-03-08] MEDS: cefTRIAXone\\ROCEPHIN 2 GM in Sodium Chloride 0.9% 100 ML IVPB SCH (20:22)
[2018-03-08] MEDS: Atorvastatin Calcium 40 MG TAB PO SCH (20:29)
[2018-03-08] MEDS: Allopurinol 300 MG TAB PO SCH (20:29)
[2018-03-08] MEDS: Polyethylene Glycol 3350 17 GM Packet PO SCH (20:32)
[2018-03-09 05:10] LABS: Anion Gap 13 mmol/L (10-20); BUN (Urea Nitrogen) 26 mg/dL (8.4-25.7); Calc. Creatinine Clearance 47 mL/min (70-130); Calcium 8.5 mg/dL (7.8-10.44); Carbon Dioxide 24 mmol/L (23-31); Chloride 104 mmol/L (98-107); Estimated GFR-MDRD 45; Glucose 94 mg/dL (83-110); Potassium 4.3 mmol/L (3.5-5.1); Sodium 137 mmol/L (136-145)
[2018-03-09] MEDS: Ascorbic Acid 500 mg Chewable Tablet PO SCH ×2 (08:30→20:28)
[2018-03-09] MEDS: Colchicine 0.6 MG TAB PO SCH (08:30)
[2018-03-09] MEDS: Fish Oil 1,000 MG CAP PO SCH ×2 (08:30→20:38)
[2018-03-09] MEDS: Tamsulosin HCl 0.4 MG CAP PO SCH (08:30)
[2018-03-09] MEDS: Docusate Calcium (SURFAK) 240 MG CAP PO SCH ×2 (08:30→20:28)
[2018-03-09] MEDS: Heparin 5,000 UNITS/ML VIAL SC SCH ×2 (08:32→20:44)
[2018-03-09] MEDS: HYDROcodone/Acetaminophen 10/325 mg Tablet PO PRN ×2 (10:38→18:32)
--- NOTE | 2018-03-09 13:00 | PDOC.PN ---
- Subjective Encounter Start Date: 03/09/18 Encounter Start Time: 12:58 Subjective: constipated - Objective Vital Signs & Weight: Vital Signs (12 hours) Temp Pulse Resp BP Pulse Ox 03/09/18 11:52 97.2 F L 97 18 169/74 H 95 03/09/18 08:00 98.2 F 97 16 03/09/18 07:26 98.2 F 97 16 156/84 H 95 03/09/18 04:25 97.4 F L 87 19 148/77 H 95 Weight Weight 200 lb I&O: 03/08/18 03/09/18 03/10/18 06:59 06:59 06:59 Intake Total 680 2200 Output Total 350 1400 Balance 330 800 Result Diagrams: 03/08/18 05:02 03/09/18 04:13 Phys Exam - Physical Examination Neck: no JVD Respiratory: clear to auscultation bilateral Cardiovascular: no significant murmur, irregular Gastrointestinal: soft, non-tender, positive bowel sounds Musculoskeletal: no edema Dx/Plan (1) Atrial fibrillation with controlled ventricular response Code(s): I48.91 - UNSPECIFIED ATRIAL FIBRILLATION Status: Chronic (2) Hyponatremia Code(s): E87.1 - HYPO-OSMOLALITY AND HYPONATREMIA Status: Acute (3) HTN (hypertension) Code(s): I10 - ESSENTIAL (PRIMARY) HYPERTENSION Status: Chronic Qualifiers: Hypertension type: essential hypertension Qualified Code(s): I10 - Essential (primary) hypertension (4) Acute renal failure Status: Acute (5) Anemia, blood loss Code(s): D50.0 - IRON DEFICIENCY ANEMIA SECONDARY TO BLOOD LOSS (CHRONIC) Status: Acute - Plan rpt cbc now -: bolus 1 li NS, bmp in am * .
[2018-03-09 15:04] LABS: #Eosinphils 0.7 thou/uL (0.0-0.7); #Lymphocytes 0.8 thou/uL (1.20-3.40); #Monocytes 0.6 thou/uL (0.11-0.59); #Neutrophils 4.7 thou/uL (1.40-6.50); %Basophils 0.3 % (0.0-1.0); %Eosinophils 10.1 % (0.0-10.0); %Lymphocytes 11.5 % (21.0-51.0); %Monocytes 8.9 % (0.0-10.0); %Neutrophils 69.2 % (42.0-75.0); Hemoglobin 9.3 g/dL (14.0-18.0); Mean Corpuscular HGB CONC 31.6 g/dL (32.0-36.0); Mean Corpuscular Hemoglobin 28.8 pg (27.0-31.0); Mean Corpuscular Volume 91.3 fL (78.0-98.0); Mean Platelet Volume 7.2 fL (7.4-10.4); Platelet Count 454 thou/uL (130-400); RBC Distribution Width 16.8 % (11.5-14.5); Red Blood Cell (RBC) Count 3.23 mill/uL (4.70-6.10); White Blood Cell (WBC) Count 6.8 thou/uL (4.8-10.8)
[2018-03-09] MEDS ORDERED: Sodium Chloride 0.9% 1,000 ML IV SCH (15:45)
--- NOTE | 2018-03-09 16:43 | PDOC.EVN ---
Event Note - Event Note Event Note: Hg 7.5 of 03/08 apparent erreor, todays Hg > 9
[2018-03-09] MEDS: cefTRIAXone\\ROCEPHIN 2 GM in Sodium Chloride 0.9% 100 ML IVPB SCH (20:27)
[2018-03-09] MEDS: Allopurinol 300 MG TAB PO SCH (20:28)
[2018-03-09] MEDS: Atorvastatin Calcium 40 MG TAB PO SCH (20:28)
[2018-03-09] MEDS: Polyethylene Glycol 3350 17 GM Packet PO SCH (20:29)
[2018-03-10] MEDS: HYDROcodone/Acetaminophen 10/325 mg Tablet PO PRN ×2 (00:21→14:09)
[2018-03-10 05:52] LABS: #Eosinphils 0.9 thou/uL (0.0-0.7); #Lymphocytes 1.2 thou/uL (1.20-3.40); #Monocytes 0.6 thou/uL (0.11-0.59); #Neutrophils 3.3 thou/uL (1.40-6.50); %Basophils 0.2 % (0.0-1.0); %Eosinophils 15.3 % (0.0-10.0); %Lymphocytes 19.3 % (21.0-51.0); %Monocytes 10.4 % (0.0-10.0); %Neutrophils 54.7 % (42.0-75.0); Hemoglobin 9.4 g/dL (14.0-18.0); Mean Corpuscular HGB CONC 31.7 g/dL (32.0-36.0); Mean Corpuscular Volume 91.3 fL (78.0-98.0); Mean Platelet Volume 7.1 fL (7.4-10.4); Platelet Count 438 thou/uL (130-400); RBC Distribution Width 16.6 % (11.5-14.5); Red Blood Cell (RBC) Count 3.25 mill/uL (4.70-6.10); White Blood Cell (WBC) Count 6.1 thou/uL (4.8-10.8)
[2018-03-10 06:02] LABS: Anion Gap 11 mmol/L (10-20); BUN (Urea Nitrogen) 24 mg/dL (8.4-25.7); Calc. Creatinine Clearance 44 mL/min (70-130); Calcium 8.8 mg/dL (7.8-10.44); Carbon Dioxide 28 mmol/L (23-31); Chloride 104 mmol/L (98-107); Estimated GFR-MDRD 42; Glucose 93 mg/dL (83-110); Potassium 4.7 mmol/L (3.5-5.1); Sodium 138 mmol/L (136-145)
[2018-03-10] MEDS: Ascorbic Acid 500 mg Chewable Tablet PO SCH (08:48)
[2018-03-10] MEDS: Docusate Calcium (SURFAK) 240 MG CAP PO SCH ×2 (08:48→20:57)
[2018-03-10] MEDS: Heparin 5,000 UNITS/ML VIAL SC SCH ×2 (08:49→21:01)
[2018-03-10] MEDS: Fish Oil 1,000 MG CAP PO SCH ×2 (08:49→20:57)
[2018-03-10] MEDS: Tamsulosin HCl 0.4 MG CAP PO SCH (08:49)
[2018-03-10] MEDS: Colchicine 0.6 MG TAB PO SCH (08:49)
--- NOTE | 2018-03-10 11:15 | PDOC.PN ---
- Subjective Encounter Start Date: 03/10/18 Encounter Start Time: 11:13 Subjective: doing well - Objective MAR Reviewed: Yes Vital Signs & Weight: Vital Signs (12 hours) Temp Pulse Resp BP BP Pulse Ox 03/10/18 08:00 97.6 F 81 18 158/76 H 92 L 03/10/18 04:35 98 F 81 14 135/79 92 L 03/10/18 00:17 81 171/88 H 03/10/18 00:00 98.1 F 81 16 171/88 H 92 L Weight Weight 200 lb I&O: 03/09/18 03/10/18 03/11/18 06:59 06:59 06:59 Intake Total 2200 1940 Output Total 1400 2400 Balance 800 -460 Result Diagrams: 03/10/18 05:04 03/10/18 05:04 Phys Exam - Physical Examination Neck: no JVD Respiratory: clear to auscultation bilateral Cardiovascular: RRR, no significant murmur Gastrointestinal: soft, non-tender, positive bowel sounds Musculoskeletal: no edema Dx/Plan (1) Atrial fibrillation with controlled ventricular response Code(s): I48.91 - UNSPECIFIED ATRIAL FIBRILLATION Status: Chronic (2) Hyponatremia Code(s): E87.1 - HYPO-OSMOLALITY AND HYPONATREMIA Status: Acute (3) HTN (hypertension) Code(s): I10 - ESSENTIAL (PRIMARY) HYPERTENSION Status: Chronic Qualifiers: Hypertension type: essential hypertension Qualified Code(s): I10 - Essential (primary) hypertension (4) Acute renal failure Status: Acute Qualifiers: Acute renal failure type: unspecified Qualified Code(s): N17.9 - Acute kidney failure, unspecified - Plan renal fcn steadily adverse, have called nephrology * .
--- NOTE | 2018-03-10 12:43 | PRG ---
DATE OF SERVICE: 03/10/2018 SUBJECTIVE: Tunde is now postoperative day #6 from a staged excisional right total knee arthroplasty r evision. 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 PHYSICAL EXAMINATION: VITAL SIGNS: Temperature 97.6, pulse 81, respiratory rate 18, O2 saturations are 92% on room air, bl ood pressure 158/76. GENERAL: He is alert and oriented to person, place, time, and situation. Grossly nonfocal appropria te with examiner. EXTREMITIES: He is neurovascularly intact in both lower extremities. Incision is clean and closed w ithout erythema. 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 PLAN: His creatinine has been climbing steadily and I spoke to his daughter about this and apparentl y he was treated with compression hose by the DC physician. Dr. Fowler has been notified on consult. I discussed the patient with Dr. Mariah Sprague. We will hold discharge for a day and plan for a Neph rology evaluation prior to discharge.
--- NOTE | 2018-03-10 13:23 | ULT ---
RENAL ULTRASOUND: Comparison: None. History: Renal failure with possible hydronephrosis. Technique: Multiplanar grayscale and color doppler images were obtained in a renal ultrasound. FINDINGS: The kidneys are normal in echogenicity without hydronephrosis or shadowing calculi. There are anechoi c cysts in both kidneys. The largest is seen on the left measuring 1.9 cm in greatest dimension. The kidneys measure 11.3 and 11.7 cm in length on the right and left, respectively. Limited evaluation of the urinary bladder is unremarkable. IMPRESSION: Bilateral renal cysts. POS: H
[2018-03-10 19:08] LABS: Bilirubin Negative (Negative); Blood, Urine Negative (Negative); Clarity CLEAR (Clear); Glucose, Urine (Dipstick) Negative (Negative); Leukocyte Negative (Negative); Nitrite Negative (Negative); Protein, Urine (Dipstick) Negative (Neg-Trace); Specific Gravity, Urine 1.014 (1.002-1.036)
[2018-03-10 19:11] LABS: Bacteria/HPF None Seen HPF (None Seen); Hyaline Casts/LPF 7-10 HYALINE CAST LPF (0-3 Hyaline); Pathc Cast-AUWi Flag 1.59 (0-2.49); RBC/HPF 0-3 HPF (0-3); Squamous Epithelial 0-3 HPF (0-3); WBC/HPF 0-3 HPF (0-3)
[2018-03-10] MEDS: cefTRIAXone\\ROCEPHIN 2 GM in Sodium Chloride 0.9% 100 ML IVPB SCH (20:56)
[2018-03-10] MEDS: Allopurinol 300 MG TAB PO SCH (20:57)
[2018-03-10] MEDS: Atorvastatin Calcium 40 MG TAB PO SCH (20:57)
[2018-03-10] MEDS: Polyethylene Glycol 3350 17 GM Packet PO SCH (20:58)
--- NOTE | 2018-03-10 23:26 | CON ---
NEPHROLOGY CONSULTATION DATE OF CONSULTATION: 03/10/2018 REASON FOR CONSULTATION: Elevated creatinine. HISTORY OF PRESENT ILLNESS: This is a very pleasant 87-year-old gentleman who presented to the hospital on 03/05 for right total knee replacement infection. The patient had a baseline creatinine of 0.76, on 03/06, which increased to 1.2 and is 1.5 today. There is some progressive increasing creatinine. The patient had a gram-positive cocci in clusters. The patient had been started on ceftriaxone. PAST MEDICAL HISTORY: Hypertension, gout, DJD. PAST SURGICAL HISTORY: Knee implant and spacer placement. HOME MEDICATIONS: Reviewed. HOSPITAL MEDICATIONS: Reviewed. ALLERGIES: Reviewed. FAMILY HISTORY: Negative for ESRD. REVIEW OF SYSTEMS: A 15-point review of systems was performed and negative except all noted above. GENERAL: Weakness- HEAD: Headache- NECK: No swelling or lumps. NOSE: No epistaxis or discharge. EYES: No diplopia or pain. RESPIRATORY: Dyspnea- CARDIOVASCULAR: Chest pain- GASTROINTESTINAL: Nausea- /[employer] STAVE CUTTING: Hematuria- MUSCULOSKELETAL: No joint pain. NEUROPSYCHIATIC SYSTEMS: No suicidal ideation. No ideation. SKIN: Denies any rash or ulcer. CONSTITUTIONAL: No fever or chills. PHYSICAL EXAMINATION: GENERAL: Patient is awake, alert. VITAL SIGNS: Afebrile, pulse 81, breathing 16, blood pressure 135/79. GENERAL APPEARANCE AND MENTAL STATUS: Fair. HEAD/NECK: Normocephalic. Atraumatic. EYES: EOMI. No deformity. EARS: Clear. No ulcers. NOSE: Intact. No lesions. MOUTH: Clear. No discharge. THROAT: Clear. No exudate. LUNGS: Clear. No crackles. CARDIAC: S1, S2. No rub. ABDOMEN: Benign. BS+. GENITALIA/RECTUM: Flores absent. BACK/EXTREMITIES: Edema 0+ Ulcer- NEUROLOGICAL: Alert and motor intact. SKIN: Rash- Bruise- LYMPHATICS: Edema- Ulcer- JOINT: Per orthopedics. LABORATORY DATA: Shows urine is negative for protein and creatinine was 1.5, potassium 4.7. ASSESSMENT AND RECOMMENDATIONS: 1. Acute kidney injury with chronic kidney disease, most likely due to postinfectious glomerulonephritis versus drug-induced interstitial nephritis. Agree with hydration. No indication for dialysis. 2. Anemia, stable. 3. Medication based on glomerular filtration rate are appropriate. 4. Renal imaging indicates bilateral renal cysts, which indicates chronic kidney disease. MTDD
[2018-03-11] MEDS: HYDROcodone/Acetaminophen 10/325 mg Tablet PO PRN (01:11)
[2018-03-11] MEDS: Tamsulosin HCl 0.4 MG CAP PO SCH (08:08)
[2018-03-11] MEDS: Docusate Calcium (SURFAK) 240 MG CAP PO SCH (08:08)
[2018-03-11] MEDS: Fish Oil 1,000 MG CAP PO SCH (08:08)
[2018-03-11] MEDS: Colchicine 0.6 MG TAB PO SCH (08:08)
[2018-03-11] MEDS: Heparin 5,000 UNITS/ML VIAL SC SCH (08:08)
[2018-03-11 09:17] LABS: Anion Gap 13 mmol/L (10-20); BUN (Urea Nitrogen) 24 mg/dL (8.4-25.7); Calc. Creatinine Clearance 46 mL/min (70-130); Calcium 8.8 mg/dL (7.8-10.44); Carbon Dioxide 26 mmol/L (23-31); Chloride 102 mmol/L (98-107); Estimated GFR-MDRD 44; Glucose 94 mg/dL (83-110); Potassium 4.2 mmol/L (3.5-5.1); Sodium 137 mmol/L (136-145)
--- NOTE | 2018-03-11 10:45 | PRG ---
DATE OF SERVICE: 03/11/2018 SUBJECTIVE: This is an 87-year-old gentleman being seen for acute kidney injury. The patient denies any nausea, vomiting, or chest pain. PHYSICAL EXAMINATION: GENERAL: Patient is awake. VITAL SIGNS: Afebrile, pulse 74, breathing 16, blood pressure 153/77. OBJECTIVE: See above. Awake, alert, in no acute distress. GENERAL APPEARANCE AND MENTAL STATUS: Fair. HEAD/NECK: Normocephalic. Atraumatic. EYES: EOMI. No deformity. EARS: Clear. No ulcers. NOSE: Intact. No lesions. MOUTH: Clear. No discharge. THROAT: Clear. No exudate. LUNGS: Clear. No crackles. CARDIAC: S1, S2. No rub. ABDOMEN: Benign. BS+. GENITALIA/RECTUM: Flores absent. BACK/EXTREMITIES: Edema 0+ Ulcer- NEUROLOGICAL: Alert and motor intact. SKIN: Rash- Bruise- LYMPHATICS: Edema- Ulcer- LABORATORY: Hemoglobin was 9.4, creatinine 1.5. ASSESSMENT AND PLAN: 1. Acute kidney injury with chronic kidney disease, most likely because of acute tubular necrosis du e to sepsis and possible drug induced. No indication for dialysis. 2. Hypertension, stable. 3. Anemia, stable. 4. Medication based on glomerular filtration rate are appropriate. I would continue hydration. The patient can follow up to see me in 1 week.
--- NOTE | 2018-03-11 11:15 | DIS ---
DATE OF ADMISSION: 03/04/2018 DATE OF DISCHARGE: 03/11/2018 PRIMARY CARE PROVIDE: Jessica Mata M.D. Discharged to rehabilitation. DISCHARGE MEDICATIONS: Eliquis 5 mg twice a day, colchicine 0.6 mg daily, vitamin C, omega 3 fish oi l, Flomax 0.4 daily, atorvastatin 40 mg a day, enalapril 20 mg a day, omeprazole 20 mg a day, Norvasc 10 mg a day, allopurinol 300 mg at bedtime, Rocephin 2 grams q.24 hours. ALLERGIES: None. DIET: Heart healthy. PENDING AT THE TIME OF DISCHARGE: Nothing. FINAL DIAGNOSES: 1. 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 2. Revision of right knee secondary to infection. 3. Atrial fibrillation with controlled ventricular response. 4. Hypertension. 5. Acute renal failure. 6. History of anticoagulation being held. 7. Dyslipidemia. 8. Gout. HOSPITAL COURSE: The patient admitted with infected right knee, was seen by Dr. Chacorta Duarte. Ronit ent was on vancomycin and Rocephin pre-op. Post-surgery a medical management consult with [facility] was initiated. The patient's postop status was unremarkable until 03/08/2018, was noted to have an incre ased creatinine of 142. He was given fluids, follow up 03/09/2018 was 148. Fluids were continued. Follow up, 03/10/[address] Marino Fowler was consulted. Today, his creatinine has dropped to 1 .52. Renal ultrasound was done showed bilateral renal cysts. The patient is doing well today. Ledy l signs are stable. Cardiorespiratory exam is unremarkable except for his atrial fib. He is being d ischarged to rehab for continuing care. Dr. Marino Fowler, Nephrology will follow him there. Post-rehab ilitation he needs follow up with the operating physician, Dr. Chavez and with Dr. Mata. Follow up in rehab will be done by Dr. Mireles.
[2018-03-11 12:13] VITALS: BP 151/67; TEMP 97.9
== END 2018-03-11 13:22 | DRG 467 ==
LOC: SJJU 17:18
PROVIDERS: ADMIT Orthopaedic Surgery; ATTEND Orthopaedic Surgery
PROC: 0SWV0JZ Revision of Synthetic Substitute in Right Knee Joint, Tibial Surface, Open Approach (ICD-10-PCS; principal; 2018-03-05)
PROC: 0SWC0JC Revision of Synthetic Substitute in Right Knee Joint, Patellar Surface, Open Approach (ICD-10-PCS; 2018-03-05)
PROC: 02HV33Z Insertion of Infusion Device into Superior Vena Cava, Percutaneous Approach (ICD-10-PCS; 2018-03-05)
PROC: B548ZZA Ultrasonography of Superior Vena Cava, Guidance (ICD-10-PCS; 2018-03-05)
DX: T84.53XA Infection and inflammatory reaction due to internal right knee prosthesis, initial encounter (principal); M00.9 Pyogenic arthritis, unspecified; E87.1 Hypo-osmolality and hyponatremia; N17.9 Acute kidney failure, unspecified; M10.9 Gout, unspecified; B95.5 Unspecified streptococcus as the cause of diseases classified elsewhere; K59.00 Constipation, unspecified; D50.0 Iron deficiency anemia secondary to blood loss (chronic); I12.9 Hypertensive chronic kidney disease with stage 1 through stage 4 chronic kidney disease, or unspecified chronic kidney disease; N18.9 Chronic kidney disease, unspecified; I48.2 Chronic atrial fibrillation
CPT/HCPCS: 36415; 36569; 71046; 76770; 80048; 80202; 81001; 85025; 85060; 85610; 85730; 86140; 87070; 87077; 87186; 87205; 89051; 93005; 93010; A4216; C1713; C1751; C1776; G8978-GP-CM; G8979-GP-CK; J0360; J0670; J0696; J1644; J2001; J2250; J2405; J2704; J2795; J3010; J3260; J3370; J7050; Q4166-KX-JC